=== PATIENT | female | born 1955 | race Caucasian/White ===

== ENCOUNTER 2016-05-24 09:40 | Emergency (ER) | payer BC ==
--- NOTE | 2016-05-24 10:22 | EDDOCDS ---
Physician Documentation [facility] Name: Trudy Lindsay Age: 60 yrs Sex: Female : 1955 Arrival Date: 05/24/2016 Time: 09:40 Bed TR7 Private MD: Efrem Thapa A. Disposition: 05/24/16 10:14 Discharged to Home/Self Care. Impression: Acute upper respiratory infections of multiple and unspecified sites, Acute bronchitis. - Condition is Stable. - Discharge Instructions: Acute Bronchitis, Upper Respiratory Infection, Adult. - Prescriptions for Clindamycin HCl 300 mg Oral Capsule - take 1 capsule by ORAL route every 6 hours; 40 capsule. Albuterol Sulfate 2.5 mg /3 mL (0.083 %) Inhalation Solution for Nebulization - inhale 1 unit by NEBULIZATION route 4 times per day As needed; 1 box. Fluticasone 50 mcg/actuation Nasal [place], Suspension - inhale 2 spray by INTRANASAL route once daily; 1 bottle. - Medication Reconciliation, Local Pharmacy Hours, Work Release Form - 3 day form. - Follow up: Emergency Department; When: As needed. Follow up: Efrem Thapa; When: Call to arrange an appointment; Reason: Wound/Symptom Recheck, Recheck today's complaints, Worsening of conditions, Continuance of care. - Problem is an ongoing problem. - Symptoms are unchanged. Historical: - Allergies: PENICILLINS; Erythromycin; Ceclor; duricef; Bactrim; Prednisone; Codeine Sulfate; CEPHALOSPORINS; - Home Meds: 1. Albuterol Nebulizer as needed 2. Claritin 10 mg Oral tab 1 tab once daily - PMHx: bronchial atelectasis; Depression; lichen sclerosis; - PSHx: Tubal ligation; reversa tubal ligation; - Social history: Smoking status: Patient states was never smoker of tobacco. No barriers to communication noted, The patient speaks fluent Frisian, Speaks appropriately for age. - Family history: Not pertinent. - : The pt / caregiver states he / she is not on anticoagulants. Home medication list is obtained from the patient. - Exposure Risk Screening:: None identified. Vital Signs: 05/24 09:42 BP 173 / 92; Pulse 120; Resp 18; Temp 96.9(T); Pulse Ox 97% on R/A; Weight 90.72 kg / dem1 200 lbs (R); Height 5 ft. 6 in. (167.64 cm) (R); Pain 0/10; 09:42 Body Mass Index 32.28 (90.72 kg, 167.64 cm) dem1 Signatures: Jennifer Antonio,RN RN kr3 Laure Cruz RN RN dsf Michael Lopez, PAIleanaC PA-C cc10 MTDD
--- NOTE | 2016-05-24 10:22 | EDDOCDS ---
Nurse's Notes [facility] Name: Trudy Lindsay Age: 60 yrs Sex: Female : 1955 Arrival Date: 05/24/2016 Time: 09:40 Bed TR7 Private MD: Efrem Thapa A. Diagnosis: Acute upper respiratory infections of multiple and unspecified sites;Acute bronchitis Presentation: 05/24 09:50 Presenting complaint: Patient states: has had upper respiratory tract infection for 1 kr3 week. Adult Sepsis Screening: The patient does not have new or worsening altered mentation. Patient's respiratory rate is less than 22. Systolic blood pressure is greater than 100. Patient has a qSOFA score of 0- Negative Sepsis Screen. Suicide/Homicide risk assessment- the patient denies having any suicidal and/or homicidal ideations and does not present with any other emotional, behavioral or mental health complaints. Status: Patient is not a service center technician or dependent. Transition of care: patient was not received from another setting of care. 09:50 Acuity: QASIM Level 5 kr3 09:50 Method Of Arrival: Walkin/Carried/Asstd kr3 Triage Assessment: 09:56 General: Appears in no apparent distress, comfortable, Behavior is cooperative. Pain: kr3 Denies pain. HIV screening NA for this visit Offered previously. EENT: Reports intermittent nasal congestion. Respiratory: Respiratory effort is even, unlabored, Reports persistent cough with exertion. Historical: - Allergies: PENICILLINS; Erythromycin; Ceclor; duricef; Bactrim; Prednisone; Codeine Sulfate; CEPHALOSPORINS; - Home Meds: 1. Albuterol Nebulizer as needed 2. Claritin 10 mg Oral tab 1 tab once daily - PMHx: bronchial atelectasis; Depression; lichen sclerosis; - PSHx: Tubal ligation; reversa tubal ligation; - Social history: Smoking status: Patient states was never smoker of tobacco. No barriers to communication noted, The patient speaks fluent French, Speaks appropriately for age. - Family history: Not pertinent. - : The pt / caregiver states he / she is not on anticoagulants. Home medication list is obtained from the patient. - Exposure Risk Screening:: None identified. Screenin:21 Screening information is obtained from the patient. Fall risk: No risks identified. dsf Assistance ADL's: requires no assistance with activities of daily living. Abuse/DV Screen: The patient / caregiver reports he/she is: not in a situation that causes fear, pain or injury. Nutritional screening: No deficits noted. Advance Directives: Currently, there is no health care proxy. home support is adequate. Assessment: 10:20 General: Appears in no apparent distress, comfortable, Behavior is appropriate for age, dsf cooperative. Awake, alert, oriented. Skin warm and dry. Moves all extremities. Bilateral breath sounds clear. Respirations unlabored. The patient / caregiver is instructed regarding the plan of care and ED course. Vital Signs: 09:42 BP 173 / 92; Pulse 120; Resp 18; Temp 96.9(T); Pulse Ox 97% on R/A; Weight 90.72 kg dem1 (R); Height 5 ft. 6 in. (167.64 cm) (R); Pain 0/10; 09:42 Body Mass Index 32.28 (90.72 kg, 167.64 cm) [facility] Vitals: 09:42 Log In Time: May 24, 2016 at 09:35. [facility] ED Course: 09:42 Patient visited by Topher Ott. dem1 09:42 Efrem Thapa is Private Physician. dem1 09:42 Patient moved to Waiting dem1 09:43 Patient moved to Pre RCE dem1 09:50 Patient moved to Triage 3 kr3 09:50 Triage Initiated kr3 10:02 Michael Lopez [facility]-C [facility] cc10 10:02 Teena Sun MD is Attending Physician. cc10 10:06 Patient visited by Michael Lopez PA-C. cc10 10:06 Patient visited by Michael Lopez PA-C. cc10 10:14 Efrem Thapa is Referral Physician. cc10 10:20 Patient has correct armband on for positive identification. dsf 10:20 Patient moved to TR7 dsf 10:21 No IV's were initiated during this patient's visit. No procedures done that require dsf assistance. Order Results: There are currently no results for this order. Outcome: 10:14 Discharge ordered by Provider. cc10 10:20 The following High Risk Discharge criteria are identified: None. Discharged to home dsf ambulatory. Condition: stable. Discharge instructions given to patient, Instructed on discharge instructions, follow up and referral plans. medication usage, Demonstrated understanding of instructions, medications, Pt was receptive of discharge instructions/ teaching. Prescriptions given X 3, Work note provided to patient. No special radiology studies were completed. 10:21 Discharge Assessment: Patient awake, alert and oriented x 3. No cognitive and/or dsf functional deficits noted. Patient verbalized understanding of disposition instructions. patient administered narcotics - no. The following High Risk Discharge criteria are identified: None. Discharged to home ambulatory. Property sent home with patient. 10:22 Patient left the ED. dsf Signatures: Jennifer Antonio,RN RN kr3 Laure CruzRN RN dsf Topher Ott Colin, PA-C PA-C cc10 MTDD
--- NOTE | 2016-05-26 11:23 | EDDOCDS ---
Nurse's Notes [facility] Name: Trudy Lindsay Age: 60 yrs Sex: Female : 1955 Arrival Date: 05/24/2016 Time: 09:40 Bed TR7 Private MD: Efrem Thapa A. Diagnosis: Acute upper respiratory infections of multiple and unspecified sites;Acute bronchitis Presentation: 05/24 09:50 Presenting complaint: Patient states: has had upper respiratory tract infection for 1 kr3 week. Adult Sepsis Screening: The patient does not have new or worsening altered mentation. Patient's respiratory rate is less than 22. Systolic blood pressure is greater than 100. Patient has a qSOFA score of 0- Negative Sepsis Screen. Suicide/Homicide risk assessment- the patient denies having any suicidal and/or homicidal ideations and does not present with any other emotional, behavioral or mental health complaints. Status: Patient is not a professional services consultant or dependent. Transition of care: patient was not received from another setting of care. 09:50 Acuity: QASIM Level 5 kr3 09:50 Method Of Arrival: Walkin/Carried/Asstd kr3 Triage Assessment: 09:56 General: Appears in no apparent distress, comfortable, Behavior is cooperative. Pain: kr3 Denies pain. HIV screening NA for this visit Offered previously. EENT: Reports intermittent nasal congestion. Respiratory: Respiratory effort is even, unlabored, Reports persistent cough with exertion. Historical: - Allergies: PENICILLINS; Erythromycin; Ceclor; duricef; Bactrim; Prednisone; Codeine Sulfate; CEPHALOSPORINS; - Home Meds: 1. Albuterol Nebulizer as needed 2. Claritin 10 mg Oral tab 1 tab once daily - PMHx: bronchial atelectasis; Depression; lichen sclerosis; - PSHx: Tubal ligation; reversa tubal ligation; - Social history: Smoking status: Patient states was never smoker of tobacco. No barriers to communication noted, The patient speaks fluent Italian, Speaks appropriately for age. - Family history: Not pertinent. - : The pt / caregiver states he / she is not on anticoagulants. Home medication list is obtained from the patient. - Exposure Risk Screening:: None identified. Screenin:21 Screening information is obtained from the patient. Fall risk: No risks identified. dsf Assistance ADL's: requires no assistance with activities of daily living. Abuse/DV Screen: The patient / caregiver reports he/she is: not in a situation that causes fear, pain or injury. Nutritional screening: No deficits noted. Advance Directives: Currently, there is no health care proxy. home support is adequate. Assessment: 10:20 General: Appears in no apparent distress, comfortable, Behavior is appropriate for age, dsf cooperative. Awake, alert, oriented. Skin warm and dry. Moves all extremities. Bilateral breath sounds clear. Respirations unlabored. The patient / caregiver is instructed regarding the plan of care and ED course. 10:20 General: provider Jessica aware of VS pt took a nebulizer treatment before coming to ER dsf . Vital Signs: 09:42 BP 173 / 92; Pulse 120; Resp 18; Temp 96.9(T); Pulse Ox 97% on R/A; Weight 90.72 kg dem1 (R); Height 5 ft. 6 in. (167.64 cm) (R); Pain 0/10; 09:42 Body Mass Index 32.28 (90.72 kg, 167.64 cm) [facility] [place] Vitals: 09:42 Log In Time: May 24, 2016 at 09:35. [facility] ED Course: 09:42 Patient visited by Topher Ott. dem1 09:42 Efrem Thapa is Private Physician. dem1 09:42 Patient moved to Waiting dem1 09:43 Patient moved to Pre RCE dem1 09:50 Patient moved to Triage 3 kr3 09:50 Triage Initiated kr3 10:02 Michael Lopez PA-C [facility]. cc10 10:02 Teena Sun MD is Attending Physician. cc10 10:06 Patient visited by Michael Lopez PA-C. cc10 10:06 Patient visited by Michael Lopez PA-C. cc10 10:14 Efrem Thapa is Referral Physician. cc10 10:20 Patient has correct armband on for positive identification. dsf 10:20 Patient moved to TR7 dsf 10:21 No IV's were initiated during this patient's visit. No procedures done that require dsf assistance. 05/25 07:20 T-Sheet-- Draft Copy was scanned into [employer] and attached to record. gb Order Results: There are currently no results for this order. Outcome: 05/24 10:14 Discharge ordered by Provider. cc10 10:20 The following High Risk Discharge criteria are identified: None. Discharged to home dsf ambulatory. Condition: stable. Discharge instructions given to patient, Instructed on discharge instructions, follow up and referral plans. medication usage, Demonstrated understanding of instructions, medications, Pt was receptive of discharge instructions/ teaching. Prescriptions given X 3, Work note provided to patient. No special radiology studies were completed. 10:21 Discharge Assessment: Patient awake, alert and oriented x 3. No cognitive and/or dsf functional deficits noted. Patient verbalized understanding of disposition instructions. patient administered narcotics - no. The following High Risk Discharge criteria are identified: None. Discharged to home ambulatory. Property sent home with patient. 10:22 Patient left the ED. dsf Signatures: Katiuska Velásquez, Reg Jennifer Floyd,RN RN kr3 Laure CruzRN RN dsf Topher Ott Colin, PA-Priya PA-C cc10 Chart Complete [facility]ITALDerek
--- NOTE | 2016-05-26 11:23 | EDDOCDS ---
Physician Documentation [facility] Name: Trudy Lindsay Age: 60 yrs Sex: Female : 1955 Arrival Date: 05/24/2016 Time: 09:40 Bed TR7 Private MD: Efrem Thapa A. Disposition: 05/24/16 10:14 Discharged to Home/Self Care. Impression: Acute upper respiratory infections of multiple and unspecified sites, Acute bronchitis. - Condition is Stable. - Discharge Instructions: Acute Bronchitis, Upper Respiratory Infection, Adult. - Prescriptions for Clindamycin HCl 300 mg Oral Capsule - take 1 capsule by ORAL route every 6 hours; 40 capsule. Albuterol Sulfate 2.5 mg /3 mL (0.083 %) Inhalation Solution for Nebulization - inhale 1 unit by NEBULIZATION route 4 times per day As needed; 1 box. Fluticasone 50 mcg/actuation Nasal [place], Suspension - inhale 2 spray by INTRANASAL route once daily; 1 bottle. - Medication Reconciliation, Local Pharmacy Hours, Work Release Form - 3 day form. - Follow up: Emergency Department; When: As needed. Follow up: Efrem Thapa; When: Call to arrange an appointment; Reason: Wound/Symptom Recheck, Recheck today's complaints, Worsening of conditions, Continuance of care. - Problem is an ongoing problem. - Symptoms are unchanged. Historical: - Allergies: PENICILLINS; Erythromycin; Ceclor; duricef; Bactrim; Prednisone; Codeine Sulfate; CEPHALOSPORINS; - Home Meds: 1. Albuterol Nebulizer as needed 2. Claritin 10 mg Oral tab 1 tab once daily - PMHx: bronchial atelectasis; Depression; lichen sclerosis; - PSHx: Tubal ligation; reversa tubal ligation; - Social history: Smoking status: Patient states was never smoker of tobacco. No barriers to communication noted, The patient speaks fluent Divehi, Speaks appropriately for age. - Family history: Not pertinent. - : The pt / caregiver states he / she is not on anticoagulants. Home medication list is obtained from the patient. - Exposure Risk Screening:: None identified. Vital Signs: 05/24 09:42 BP 173 / 92; Pulse 120; Resp 18; Temp 96.9(T); Pulse Ox 97% on R/A; Weight 90.72 kg / dem1 200 lbs (R); Height 5 ft. 6 in. (167.64 cm) (R); Pain 0/10; 09:42 Body Mass Index 32.28 (90.72 kg, 167.64 cm) dem1 MDM: 05/25 07:20 T-Sheet-- Draft Copy was scanned into [employer] and attached to record. gb Signatures: Katiuska Velásquez, Reg Reg Jennifer Redd RN RN kr3 Laure Cruz RN RN dsf Michael Lopez, PA-C PA-C cc10 The chart was reviewed and I authenticate all verbal orders and agree with the evaluation and treatment provided.Attachments: 07:20 T-Sheet-- Draft Copy gb Chart Complete MTDD
--- NOTE | 2016-05-26 11:23 | EDDOCDS ---
Physician Documentation [facility] Name: Trudy Lindsay Age: 60 yrs Sex: Female : 1955 Arrival Date: 05/24/2016 Time: 09:40 Bed TR7 Private MD: Efrem Thapa A. Disposition: 05/24/16 10:14 Discharged to Home/Self Care. Impression: Acute upper respiratory infections of multiple and unspecified sites, Acute bronchitis. - Condition is Stable. - Discharge Instructions: Acute Bronchitis, Upper Respiratory Infection, Adult. - Prescriptions for Clindamycin HCl 300 mg Oral Capsule - take 1 capsule by ORAL route every 6 hours; 40 capsule. Albuterol Sulfate 2.5 mg /3 mL (0.083 %) Inhalation Solution for Nebulization - inhale 1 unit by NEBULIZATION route 4 times per day As needed; 1 box. Fluticasone 50 mcg/actuation Nasal [place], Suspension - inhale 2 spray by INTRANASAL route once daily; 1 bottle. - Medication Reconciliation, Local Pharmacy Hours, Work Release Form - 3 day form. - Follow up: Emergency Department; When: As needed. Follow up: Efrem Thapa; When: Call to arrange an appointment; Reason: Wound/Symptom Recheck, Recheck today's complaints, Worsening of conditions, Continuance of care. - Problem is an ongoing problem. - Symptoms are unchanged. Historical: - Allergies: PENICILLINS; Erythromycin; Ceclor; duricef; Bactrim; Prednisone; Codeine Sulfate; CEPHALOSPORINS; - Home Meds: 1. Albuterol Nebulizer as needed 2. Claritin 10 mg Oral tab 1 tab once daily - PMHx: bronchial atelectasis; Depression; lichen sclerosis; - PSHx: Tubal ligation; reversa tubal ligation; - Social history: Smoking status: Patient states was never smoker of tobacco. No barriers to communication noted, The patient speaks fluent Ukrainian, Speaks appropriately for age. - Family history: Not pertinent. - : The pt / caregiver states he / she is not on anticoagulants. Home medication list is obtained from the patient. - Exposure Risk Screening:: None identified. Vital Signs: 05/24 09:42 BP 173 / 92; Pulse 120; Resp 18; Temp 96.9(T); Pulse Ox 97% on R/A; Weight 90.72 kg / dem1 200 lbs (R); Height 5 ft. 6 in. (167.64 cm) (R); Pain 0/10; 09:42 Body Mass Index 32.28 (90.72 kg, 167.64 cm) dem1 MDM: 05/25 07:20 T-Sheet-- Draft Copy was scanned into [employer] and attached to record. gb Signatures: Katiuska Velásquez, Reg Reg Jennifer Redd RN RN kr3 Laure Cruz RN RN dsf Michael Lopez, PA-C PA-C cc10 The chart was reviewed and I authenticate all verbal orders and agree with the evaluation and treatment provided.Attachments: 07:20 T-Sheet-- Draft Copy gb Chart Complete MTDD
== END 2016-05-24 10:22 | disposition home or self-care (01) ==
LOC: M ED 09:40
DX: J20.9 Acute bronchitis, unspecified (principal); J06.9 Acute upper respiratory infection, unspecified; J98.11 Atelectasis; F32.9 Major depressive disorder, single episode, unspecified; L90.0 Lichen sclerosus et atrophicus; Z79.899 Other long term (current) drug therapy; Z88.0 Allergy status to penicillin; Z88.1 Allergy status to other antibiotic agents; Z88.2 Allergy status to sulfonamides; Z88.5 Allergy status to narcotic agent; Z88.8 Allergy status to other drugs, medicaments and biological substances

== ENCOUNTER → 2016-08-10 | Outpatient (REF) | payer BC ==
[2016-08-10 11:46] LABS: ALBUMIN 3.6 GM/DL (3.2-5.2); ALKALINE PHOSPHATASE 68 U/L (45-117); ALT/SGPT 27 U/L (12-78); ANION GAP 5 MEQ/L (8-16); AST/SGOT 25 U/L (15-37); BILIRUBIN,TOTAL 0.4 MG/DL (0.2-1.0); BLOOD UREA NITROGEN 20 MG/DL (7-18); CALCIUM LEVEL 9.7 MG/DL (8.8-10.2); CARBON DIOXIDE LEVEL 31 MEQ/L (21-32); CHLORIDE LEVEL 104 MEQ/L (98-107); CHOLESTEROL LEVEL 226 MG/DL (<200); CREATININE FOR GFR 0.81 MG/DL (0.55-1.02); GLOMERULAR FILTRATION RATE > 60.0 (>45); GLUCOSE, FASTING 167 MG/DL (80-110); POTASSIUM SERUM 4.8 MEQ/L (3.5-5.1); SODIUM LEVEL 140 MEQ/L (136-145); TOTAL PROTEIN 7.2 GM/DL (6.4-8.2); TRIGLYCERIDES LEVEL 201 MG/DL (<150)
== END ==
LOC: M SFHCCLAY 07:02
PROVIDERS: ATTEND Nurse Practitioner
DX: Z00.00 Encounter for general adult medical examination without abnormal findings (principal)

== ENCOUNTER → 2016-08-17 | Outpatient (CLI) | payer BC ==
[~2016-08-17] MED LIST: PLAV75TA38 PO
--- NOTE | 2016-08-17 17:34 | REP ---
MR BRAIN WITHOUT CONTRAST: HISTORY: Right hand weakness. Small areas of increased signal intensity on diffusion and T2 weighted images are present in the left frontal and parietal lobes. These are isointense in signal intensity on ADC images and are consistent with subacute infarctions. Areas of increased signal intensity on T2 weighted images are present in the preventricular and subcortical white matter. This represents small vessel ischemic disease. There is no intraparenchymal hemorrhage. Mass or midline shift. The ventricular system and cortical sulci are dilated consistent with minimal volume loss. There is no extracerebral collection. Increased signal intensity is present in the subarachnoid space overlying the posterior left parietal lobe. This represents slow blood flow. IMPRESSION: 1. 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 2. Minimal small vessel ischemic disease. 3. Minimal volume loss. Signed by Vidal Leblanc MD 08/20/2016 09:17 A
--- NOTE | 2016-08-17 17:46 | REP ---
MR CERVICAL SPINE WITHOUT CONTRAST: HISTORY: Right hand weakness. There are 2 mm of anterior subluxation of C2 on 3. Facet hypertrophy is present on the left. This produces minimal narrowing of the left C2 neural foramen. The right C2 neural foramina is patent. A disc bulge and small central disc protrusion with associated osteophyte formation are present at the C3-4 level. There is mild effacement of the thecal sac without spinal cord compression. Uncinate process and facet hypertrophy are present on the left. These findings produce mild narrowing of the left C3 neural foramen. The right C3 neural foramen is patent. A disc bulge with associated osteophyte formation is present at the A disc bulge is present at the C3-4 level. The previously noted disc protrusion is note seen. The C3 neural foramina are patent. A disc bulge with associated osteophyte formation is present at the C4-5 level. There is moderate effacement of the thecal sac without spinal cord compression. Bilateral uncinate process hypertrophy is present. These findings produce mild narrowing of the C4 neural foramina. A disc bulge with associated osteophyte formation is present at the C5-6 level. There is moderate effacement of the thecal sac without spinal cord compression. Bilateral uncinate process hypertrophy is present. This produces minimal narrowing of the C5 neural foramina. A disc bulge with associated osteophyte formation is present at the C6-7 level. There is mild effacement of the thecal sac without spinal cord compression. Bilateral uncinate process hypertrophy is present. This produces mild and minimal narrowing of the right and left C6 neural foramina respectively. There is no other disc bulge or herniation. The remaining neural foramina are patent. The spinal cord is normal in signal intensity. The C3-4 through C6-7 intervertebral discs are decreased in height consistent with disc degeneration. Normal signal intensity is present in the cervical vertebral bodies. IMPRESSION: There is cervical spondylosis at the C2-3 through C6-7 levels without spinal cord compression. Signed by Vidal Leblanc MD 08/20/2016 09:17 A
== END ==
LOC: M RAD 14:42
PROVIDERS: ATTEND Nurse Practitioner
DX: R29.898 Other symptoms and signs involving the musculoskeletal system (principal); E11.9 Type 2 diabetes mellitus without complications

== ENCOUNTER 2016-08-20 22:52 | Emergency (ER) | payer BC ==
[~2016-08-20] VITALS: Ht 167.6 cm; Wt 90.7 kg
[2016-08-21] MEDS ORDERED: NS 500 ML IV ONE
[2016-08-21 00:10] LABS: BASO % 0.5 % (0.0-1.0); EOS # 0.2 K/mm3 (0.0-0.50); EOS % 2.3 % (0.0-3.0); LARGE UNSTAINED CELL # 0.2 K/mm3 (0.0-0.4); LYMPH # 3.1 K/mm3 (1.5-4.5); MEAN CORPUSCULAR HEMOGLOBIN 29.1 pg (27.0-33.0); MEAN CORPUSCULAR HGB CONC 33.3 g/dl (32.0-36.5); MEAN CORPUSCULAR VOLUME 87.6 fl (80.0-96.0); MONO # 0.4 K/mm3 (0.0-0.8); NEUTROPHILS # 3.8 K/mm3 (1.8-7.7); NEUTROPHILS % 51.2 % (36.0-66.0); PLATELET COUNT, AUTOMATED 201 k/mm3 (150-450); RED CELL DISTRIBUTION WIDTH 13.2 % (11.5-14.5); WHITE BLOOD COUNT 7.5 K/mm3 (4.0-10.0)
[2016-08-21 00:11] LABS: INR 1.01
--- NOTE | 2016-08-21 00:20 | REPUSA ---
CT of the head Clinical history: cerebrovascular accident. Technique: Multiple axial CT images were obtained through the head without administration of contrast . Findings: The ventricles and sulci are symmetric bilaterally. There is no evidence of acute hemorrhag e or infarct. There is no midline shift, mass effect, or extra-axial fluid collection. The osseous st ructures are unremarkable. The visualized paranasal sinuses and mastoid air cells are clear. Impression: Negative study.
[2016-08-21 00:22] LABS: ANION GAP 9 MEQ/L (8-16); BLOOD UREA NITROGEN 17 MG/DL (7-18); CALCIUM LEVEL 9.5 MG/DL (8.8-10.2); CARBON DIOXIDE LEVEL 26 MEQ/L (21-32); CHLORIDE LEVEL 104 MEQ/L (98-107); CREATININE FOR GFR 0.83 MG/DL (0.55-1.02); GLOMERULAR FILTRATION RATE > 60.0 (>45); GLUCOSE, FASTING 154 MG/DL (80-110); SODIUM LEVEL 139 MEQ/L (136-145)
[2016-08-21] MEDS ORDERED: ISOVUE-370 76% 100ML VIAL (Q9967) As Ordered ONE ×2 (00:57→01:08)
[2016-08-21] MEDS ORDERED: ASPIRIN 325 MG TAB PO ONE (01:00)
--- NOTE | 2016-08-21 01:30 | REPUSA ---
CT angiogram of the chest Clinical statement: Chest pain and shortness of breath. Technique: Multiple axial CT images were obtained from the thoracic inlet through the upper abdomen a fter a bolus administration of nonionic intravenous contrast. Coronal and sagittal reconstructions we re also obtained. Comparison: 05/25/2013. Findings: The pulmonary arteries are well-opacified with contrast, with no intraluminal filling defec ts to suggest embolism. The thoracic aorta is unremarkable. Thyroid gland is within normal limits. Th ere is no thoracic lymphadenopathy. There are no pericardial or pleural effusions. There are no acute infiltrates. Mild chronic interstitial changes are seen in the lower lungs bilaterally. Limited imag ing of the upper abdomen is unremarkable. There are no suspicious osseous lesions. Impression: 1. No evidence of pulmonary embolism. 2. No acute intrapulmonary disease. Moderate COPD, grossly stable.
[2016-08-21] MEDS ORDERED: NS 1,000 ML IV ONE (04:15)
[2016-08-21 06:14] VITALS: BP 128/64
[2016-08-21] MEDS ORDERED: PLAV75TA38 PO (06:36)
--- NOTE | 2016-08-22 21:24 | ECGEPIP ---
Stationary ECG Study [facility] - ED Test Date: 2016-08-20 Pat Name: MELISSA FANG Department: Room: - Gender: F Control Systems Specialist: bernice : 1955 Requested By: JUAN YOUNG Order Number: [id number] Reading MD: Amanda Guerrero Measurements Intervals [place] Rate: 116 P: 22 [place]: 147 QRS: -36 QRSD: 85 T: 8 QT: 324 QTc: 450 Interpretive Statements SINUS TACHYCARDIA POSSIBLE ANTERIOR MYOCARDIAL INFARCTION, PROBABLY OLD INFERIOR MYOCARDIAL INFARCTION, PROBABLY OLD DECREASED RATE 05/25/13 Electronically Signed On 08-22-2016 21:24:43 EDT by Amanda Guerrero
== END 2016-08-21 06:45 | disposition home or self-care (01) ==
LOC: EDBD 22:52 → M ED 23:00
DX: E86.9 Volume depletion, unspecified (principal); I95.1 Orthostatic hypotension
CPT/HCPCS: 36415; 70450; 71275; 80048; 82550; 82553; 85025; 85610; 85730; 93005; 93041; 96360; 96361; 99285; Q9967

== ENCOUNTER → 2016-09-06 | Outpatient (REF) | payer BC ==
[2016-09-11 00:06] LABS: PROTEIN C ANTIGEN 91 % (60-150); PROTEIN S ANTIGEN FREE 102 % (57-157); PROTEIN S ANTIGEN TOTAL 169 % (60-150)
== END ==
LOC: M LABNEURO 09:03
PROVIDERS: ATTEND Psychiatry & Neurology Neurology
DX: Z86.73 Personal history of transient ischemic attack (TIA), and cerebral infarction without residual deficits (principal)

== ENCOUNTER 2016-09-12 06:00 | Outpatient (RCR) | payer BC | END 2016-09-16 | LOC: M OT 06:00 | PROVIDERS: ATTEND Nurse Practitioner | DX: Z51.89 Encounter for other specified aftercare (principal); R29.898 Other symptoms and signs involving the musculoskeletal system ==

== ENCOUNTER 2016-10-16 07:32 | Outpatient (RCR) | payer BC | END 2016-10-17 | LOC: M OT 07:32 | PROVIDERS: ATTEND Nurse Practitioner | DX: Z51.89 Encounter for other specified aftercare (principal); R29.898 Other symptoms and signs involving the musculoskeletal system ==

== ENCOUNTER 2016-11-01 07:43 | Outpatient (RCR) | payer BC ==
[~2016-11-01 07:43] MED LIST changes: +PLAV1TAB2 PO; -PLAV75TA38 PO
== END 2016-11-16 ==
LOC: M OT 07:43
PROVIDERS: ATTEND Nurse Practitioner
DX: R29.898 Other symptoms and signs involving the musculoskeletal system (principal); Z51.89 Encounter for other specified aftercare

== ENCOUNTER → 2016-11-12 | Outpatient (REF) | payer BC ==
[~2016-11-12] MED LIST changes: -PLAV1TAB2 PO; +PLAV75TA38 PO
[2016-11-12 12:21] LABS: ALBUMIN 3.6 GM/DL (3.2-5.2); ALBUMIN/GLOBULIN RATIO 0.97 (1.00-1.93); ALKALINE PHOSPHATASE 54 U/L (45-117); ALT/SGPT 25 U/L (12-78); ANION GAP 6 MEQ/L (8-16); AST/SGOT 21 U/L (15-37); BILIRUBIN,TOTAL 0.6 MG/DL (0.2-1.0); BLOOD UREA NITROGEN 11 MG/DL (7-18); CALCIUM LEVEL 9.3 MG/DL (8.8-10.2); CARBON DIOXIDE LEVEL 30 MEQ/L (21-32); CHLORIDE LEVEL 104 MEQ/L (98-107); CHOLESTEROL LEVEL 139 MG/DL (<200); CREATININE FOR GFR 0.73 MG/DL (0.55-1.02); GLOMERULAR FILTRATION RATE > 60.0 (>45); GLUCOSE, FASTING 143 MG/DL (80-110); POTASSIUM SERUM 4.8 MEQ/L (3.5-5.1); SODIUM LEVEL 140 MEQ/L (136-145); TOTAL PROTEIN 7.3 GM/DL (6.4-8.2); TRIGLYCERIDES LEVEL 210 MG/DL (<150)
== END ==
LOC: M SFHCCLAY 07:03
PROVIDERS: ATTEND Nurse Practitioner
DX: E11.9 Type 2 diabetes mellitus without complications (principal)

== ENCOUNTER → 2016-12-17 | Outpatient (REF) | payer BC ==
[~2016-12-17] MED LIST changes: +PLAV1TAB2 PO; -PLAV75TA38 PO
[2016-12-17 17:14] LABS: BASO % 0.5 % (0.0-1.0); EOS # 0.2 K/mm3 (0.0-0.50); EOS % 2.4 % (0.0-3.0); LARGE UNSTAINED CELL # 0.1 K/mm3 (0.0-0.4); LARGE UNSTAINED CELL % 1.7 % (0.0-4.0); LYMPH # 2.7 K/mm3 (1.5-4.5); LYMPH % 36.8 % (24.0-44.0); MEAN CORPUSCULAR HEMOGLOBIN 30.6 pg (27.0-33.0); MEAN CORPUSCULAR HGB CONC 33.4 g/dl (32.0-36.5); MEAN CORPUSCULAR VOLUME 91.7 fl (80.0-96.0); MONO # 0.4 K/mm3 (0.0-0.8); MONO % 5.4 % (0.0-5.0); NEUTROPHILS # 3.8 K/mm3 (1.8-7.7); NEUTROPHILS % 53.1 % (36.0-66.0); PLATELET COUNT, AUTOMATED 254 k/mm3 (150-450); RED CELL DISTRIBUTION WIDTH 12.9 % (11.5-14.5); WHITE BLOOD COUNT 7.2 K/mm3 (4.0-10.0)
[2016-12-17 17:56] LABS: ANION GAP 7 MEQ/L (8-16); BLOOD UREA NITROGEN 16 MG/DL (7-18); CALCIUM LEVEL 9.2 MG/DL (8.8-10.2); CARBON DIOXIDE LEVEL 30 MEQ/L (21-32); CHLORIDE LEVEL 105 MEQ/L (98-107); CREATININE FOR GFR 0.82 MG/DL (0.55-1.02); GLOMERULAR FILTRATION RATE > 60.0 (>45); GLUCOSE, FASTING 143 MG/DL (80-110); MAGNESIUM LEVEL 2.1 MG/DL (1.8-2.4); POTASSIUM SERUM 4.5 MEQ/L (3.5-5.1); SODIUM LEVEL 142 MEQ/L (136-145)
== END ==
LOC: M SFHCCLAY 10:07
PROVIDERS: ATTEND Family Medicine
DX: R00.0 Tachycardia, unspecified (principal)

== ENCOUNTER → 2017-09-06 | Outpatient (REF) | payer BC ==
[2017-09-06 12:02] LABS: ESTIMATED AVERAGE GLUCOSE 154 MG/DL (60-110)
[2017-09-06 12:12] LABS: ALBUMIN 3.6 GM/DL (3.2-5.2); ALBUMIN/GLOBULIN RATIO 1.03 (1.00-1.93); ALKALINE PHOSPHATASE 49 U/L (45-117); ALT/SGPT 26 U/L (12-78); ANION GAP 4 MEQ/L (8-16); AST/SGOT 24 U/L (7-37); BILIRUBIN,TOTAL 0.4 MG/DL (0.2-1.0); BLOOD UREA NITROGEN 24 MG/DL (7-18); CARBON DIOXIDE LEVEL 31 MEQ/L (21-32); CHLORIDE LEVEL 107 MEQ/L (98-107); CHOLESTEROL LEVEL 163 MG/DL (<200); CHOLESTEROL RISK RATIO 3.543 (<5); CREATININE FOR GFR 0.76 MG/DL (0.55-1.30); GLOMERULAR FILTRATION RATE > 60.0 (>45); GLUCOSE, FASTING 153 MG/DL (70-100); HDL CHOLESTEROL 46 MG/DL (>40); LDL CHOLESTEROL 63.4 MG/DL (<100); NON-HDL-C 117 MG/DL; POTASSIUM SERUM 4.6 MEQ/L (3.5-5.1); SODIUM LEVEL 142 MEQ/L (136-145); TOTAL PROTEIN 7.1 GM/DL (6.4-8.2); TRIGLYCERIDES LEVEL 268 MG/DL (<150)
== END ==
LOC: M SFHCCLAY 07:15
DX: E11.9 Type 2 diabetes mellitus without complications (principal)
CPT/HCPCS: 80053

== ENCOUNTER → 2018-02-10 | Outpatient (REF) | payer BC ==
[2018-02-10 12:02] LABS: ANION GAP 4 MEQ/L (8-16); BLOOD UREA NITROGEN 15 MG/DL (7-18); CALCIUM LEVEL 8.9 MG/DL (8.8-10.2); CARBON DIOXIDE LEVEL 32 MEQ/L (21-32); CHLORIDE LEVEL 106 MEQ/L (98-107); CREATININE FOR GFR 0.75 MG/DL (0.55-1.30); GLOMERULAR FILTRATION RATE > 60.0 (>45); GLUCOSE, FASTING 172 MG/DL (70-100); POTASSIUM SERUM 4.4 MEQ/L (3.5-5.1); SODIUM LEVEL 142 MEQ/L (136-145)
[2018-02-10 12:37] LABS: ESTIMATED AVERAGE GLUCOSE 157 MG/DL (60-110); HEMOGLOBIN A1c 7.1 %
[2018-02-10 12:51] LABS: TOTAL 25(OH) VITAMIN D 16.2 NG/ML (30.0-100.0)
== END ==
LOC: M SFHCCLAY 06:57
DX: E11.9 Type 2 diabetes mellitus without complications (principal); E55.9 Vitamin D deficiency, unspecified
CPT/HCPCS: 83036

== ENCOUNTER → 2018-10-22 | Outpatient (REF) | payer MEDICARE, BC ==
[2018-10-22 11:53] LABS: ALBUMIN 3.4 GM/DL (3.2-5.2); ALT/SGPT 26 U/L (12-78); BILIRUBIN,TOTAL 0.4 MG/DL (0.2-1.0); BLOOD UREA NITROGEN 14 MG/DL (7-18); CALCIUM LEVEL 9.4 MG/DL (8.8-10.2); CARBON DIOXIDE LEVEL 32 MEQ/L (21-32); CHLORIDE LEVEL 105 MEQ/L (98-107); CHOLESTEROL LEVEL 153 MG/DL (<200); CHOLESTEROL RISK RATIO 3.731 (<5); GLOMERULAR FILTRATION RATE > 60.0 (>45); GLUCOSE, FASTING 172 MG/DL (70-100); HDL CHOLESTEROL 41 MG/DL (>40); LDL CHOLESTEROL 60 MG/DL (<100); NON-HDL-C 112 MG/DL; POTASSIUM SERUM 5.1 MEQ/L (3.5-5.1); SODIUM LEVEL 142 MEQ/L (136-145); TOTAL PROTEIN 7.3 GM/DL (6.4-8.2); TRIGLYCERIDES LEVEL 260 MG/DL (<150)
[2018-10-22 11:57] LABS: TOTAL 25(OH) VITAMIN D 70.8 NG/ML (30.0-100.0)
[2018-10-22 12:21] LABS: HEMOGLOBIN A1c 7.9 %
== END ==
LOC: M SFHCCLAY 07:02
PROVIDERS: ATTEND Family Medicine
DX: E11.9 Type 2 diabetes mellitus without complications (principal); E78.00 Pure hypercholesterolemia, unspecified; E55.9 Vitamin D deficiency, unspecified

== ENCOUNTER → 2018-10-30 | Outpatient (CLI) | payer BC, MEDICARE ==
--- NOTE | 2018-10-30 09:08 | REPMRS ---
Patient History The patient states she has not had a clinical breast exam in over a year. Patient is postmenopausal. Family history of unknown cancer at age 50 or over in maternal grandmother. Digital Mammo Screening Bilat: October 30, 2018 - Exam #: [id number] Bilateral CC and MLO view(s) were taken. Technologist: Danni Hensley Technologist Prior study comparison: February 14, 2012, digital woman screen mammo, performed at [facility]. February 29, 2004, bilateral screening mammogram, performed at [facility]. FINDINGS: There are scattered fibroglandular densities. There has been no change in the appearance of the mammogram from the prior studies. There is a mild amount of scattered fibroglandular density which is fairly symmetric. There is no interval development of dominant mass, architectural distortion, or clustered microcalcification suggestive of malignancy. 3-D tomosynthesis shows no additional findings. Assessment: BI-RADS/ACR category 1 mammogram. Negative Mammogram. Recommendation Routine screening mammogram of both breasts in 1 year (for women over age 40). This patient's Lifetime Breast Cancer RIsk is estimated at 5.8 %. This mammogram was interpreted with the aid of an FDA-approved computer-aided dectection system. Electronically Signed By: Phuc Sutherland MD 10/30/18 [id number]
== END ==
LOC: M RAD 06:43
PROVIDERS: ATTEND Family Medicine
DX: Z12.31 Encounter for screening mammogram for malignant neoplasm of breast (principal); Z78.0 Asymptomatic menopausal state; Z80.9 Family history of malignant neoplasm, unspecified

== ENCOUNTER → 2019-01-21 | Outpatient (REF) | payer BC, MEDICARE ==
[2019-01-21 16:58] LABS: BLOOD UREA NITROGEN 15 MG/DL (7-18); CARBON DIOXIDE LEVEL 30 MEQ/L (21-32); CHLORIDE LEVEL 106 MEQ/L (98-107); CREATININE FOR GFR 0.82 MG/DL (0.55-1.30); GLOMERULAR FILTRATION RATE > 60.0 (>45); GLUCOSE, FASTING 147 MG/DL (70-100); SODIUM LEVEL 141 MEQ/L (136-145)
[2019-01-21 18:39] LABS: HEMOGLOBIN A1c 6.6 %
== END ==
LOC: M SFHCCLAY 10:03
PROVIDERS: ATTEND Family Medicine
DX: E11.9 Type 2 diabetes mellitus without complications (principal)

== ENCOUNTER → 2019-05-25 | Outpatient (REF) | payer BC, MEDICARE ==
[2019-05-25 16:52] LABS: BLOOD UREA NITROGEN 15 MG/DL (7-18); CALCIUM LEVEL 9.5 MG/DL (8.8-10.2); CARBON DIOXIDE LEVEL 29 MEQ/L (21-32); CHLORIDE LEVEL 102 MEQ/L (98-107); CREATININE FOR GFR 0.81 MG/DL (0.55-1.30); GLOMERULAR FILTRATION RATE > 60.0 (>45); GLUCOSE, FASTING 140 MG/DL (70-100); POTASSIUM SERUM 4.4 MEQ/L (3.5-5.1); SODIUM LEVEL 138 MEQ/L (136-145)
[2019-05-25 17:08] LABS: HEMOGLOBIN A1c 6.6 %
== END ==
LOC: M SFHCCLAY 11:40
PROVIDERS: ATTEND Family Medicine
DX: E11.9 Type 2 diabetes mellitus without complications (principal)

== ENCOUNTER → 2019-09-25 | Outpatient (REF) | payer BC, MEDICARE ==
[2019-09-25 16:17] LABS: ALBUMIN 3.6 GM/DL (3.2-5.2); ALT/SGPT 27 U/L (12-78); BILIRUBIN,TOTAL 0.4 MG/DL (0.2-1.0); BLOOD UREA NITROGEN 17 MG/DL (7-18); CALCIUM LEVEL 9.3 MG/DL (8.8-10.2); CARBON DIOXIDE LEVEL 30 MEQ/L (21-32); CHLORIDE LEVEL 104 MEQ/L (98-107); CHOLESTEROL LEVEL 161 MG/DL (<200); CHOLESTEROL RISK RATIO 4.236 (<5); GLOMERULAR FILTRATION RATE > 60.0 (>45); GLUCOSE, FASTING 118 MG/DL (70-100); HDL CHOLESTEROL 38 MG/DL (>40); LDL CHOLESTEROL 44 MG/DL (<100); NON-HDL-C 123 MG/DL; POTASSIUM SERUM 4.9 MEQ/L (3.5-5.1); SODIUM LEVEL 140 MEQ/L (136-145); TOTAL PROTEIN 7.7 GM/DL (6.4-8.2); TRIGLYCERIDES LEVEL 395 MG/DL (<150)
[2019-09-25 16:27] LABS: TOTAL 25(OH) VITAMIN D 82.8 NG/ML (30.0-100.0)
[2019-09-25 17:37] LABS: HEMOGLOBIN A1c 6.8 %
== END ==
LOC: M SFHCCLAY 12:13
PROVIDERS: ATTEND Family Medicine
DX: E11.9 Type 2 diabetes mellitus without complications (principal); E55.9 Vitamin D deficiency, unspecified; E78.00 Pure hypercholesterolemia, unspecified

== ENCOUNTER → 2020-02-18 | Outpatient (REF) | payer BC, MEDICARE ==
[2020-02-18 16:45] LABS: HEMOGLOBIN A1c 6.3 %
== END ==
LOC: M SFHCCLAY 11:07
PROVIDERS: ATTEND Family Medicine
DX: E11.9 Type 2 diabetes mellitus without complications (principal)

== ENCOUNTER → 2020-06-30 | Outpatient (CLI) | payer BC, MEDICARE ==
--- NOTE | 2020-06-30 13:02 | REP ---
INDICATION: R09.89 BIBASILAR CRACKLES R06.02 CHRONIC SHORTNESS OF BREATH. COMPARISON: Comparison chest x-ray [address] findings August 21, 2016. TECHNIQUE: Three views presented... FINDINGS: There are coarse bibasilar interstitial fibrotic changes which are somewhat more prominent than on the 2013 prior study but not new. The heart is not enlarged. No focal infiltrate is seen. No pleural effusion is evident. There are mild degenerative changes in the thoracic spine and thoracic aorta. IMPRESSION: Coarse bibasilar interstitial fibrosis, somewhat more pronounced than on the 2013 prior study. No definite acute infiltrate.. <Electronically signed by Phuc Sutherland > 06/30/20 [id number]
== END ==
LOC: M CLY 12:26
PROVIDERS: ATTEND Family Medicine
DX: R09.89 Other specified symptoms and signs involving the circulatory and respiratory systems (principal); R06.02 Shortness of breath

== ENCOUNTER → 2020-06-30 | Outpatient (REF) | payer BC, MEDICARE ==
[2020-06-30 16:10] LABS: HEMATOCRIT 49.9 % (36.0-47.0); HEMOGLOBIN 15.4 g/dl (12.0-15.5); MEAN CORPUSCULAR HEMOGLOBIN 28.5 pg (27.0-33.0); MEAN CORPUSCULAR HGB CONC 30.9 g/dl (32.0-36.5); MEAN CORPUSCULAR VOLUME 92.2 fl (80.0-96.0); PLATELET COUNT, AUTOMATED 278 10^3/uL (150-450); RED BLOOD COUNT 5.41 10^6/uL (4.00-5.40); WHITE BLOOD COUNT 11.2 10^3/uL (4.0-10.0)
[2020-06-30 17:22] LABS: FREE T4 1.03 NG/DL (0.76-1.46); THYROID STIMULATING HORMONE 1.57 uIU/ML (0.358-3.740)
== END ==
LOC: M SFHCCLAY 12:13
PROVIDERS: ATTEND Family Medicine
DX: R00.0 Tachycardia, unspecified (principal); R09.89 Other specified symptoms and signs involving the circulatory and respiratory systems; R06.02 Shortness of breath

== ENCOUNTER → 2020-11-24 | Outpatient (REF) | payer BC, MEDICARE ==
[2020-11-24 12:15] LABS: BLOOD UREA NITROGEN 12 MG/DL (7-18); CARBON DIOXIDE LEVEL 32 MEQ/L (21-32); CHLORIDE LEVEL 104 MEQ/L (98-107); CHOLESTEROL LEVEL 161 MG/DL (<200); CHOLESTEROL RISK RATIO 4.025 (<5); CREATININE FOR GFR 0.76 MG/DL (0.55-1.30); GLOMERULAR FILTRATION RATE > 60.0 (>45); GLUCOSE, FASTING 131 MG/DL (70-100); HDL CHOLESTEROL 40 MG/DL (>40); LDL CHOLESTEROL 59 MG/DL (<100); NON-HDL-C 121 MG/DL; POTASSIUM SERUM 4.3 MEQ/L (3.5-5.1); SODIUM LEVEL 139 MEQ/L (136-145); TRIGLYCERIDES LEVEL 309 MG/DL (<150)
[2020-11-24 12:24] LABS: MALB URINE SIEMENS 9.2 MG/L; MAU/CREAT RATIO 7.2 MCG/MG (0.0-30.0)
[2020-11-24 12:31] LABS: HEMOGLOBIN A1c 6.6 %
[2020-11-24 12:49] LABS: TOTAL 25(OH) VITAMIN D 42.1 NG/ML (30.0-100.0)
== END ==
LOC: M SFHCCLAY 07:03
PROVIDERS: ATTEND Family Medicine
DX: E11.9 Type 2 diabetes mellitus without complications (principal); E78.00 Pure hypercholesterolemia, unspecified; E55.9 Vitamin D deficiency, unspecified

== ENCOUNTER → 2021-03-09 | Outpatient (CLI) | payer BC, MEDICARE | LOC: M WHC 13:43 | PROVIDERS: ATTEND Family Medicine | DX: Z12.31 Encounter for screening mammogram for malignant neoplasm of breast (principal); Z78.0 Asymptomatic menopausal state; Z80.8 Family history of malignant neoplasm of other organs or systems ==

== ENCOUNTER → 2021-05-01 | Outpatient (CLI) | payer BC, MEDICARE | LOC: M RAD 09:37 | PROVIDERS: ATTEND Physician Assistant | DX: Z48.812 Encounter for surgical aftercare following surgery on the circulatory system (principal); I65.23 Occlusion and stenosis of bilateral carotid arteries ==

== ENCOUNTER → 2021-05-25 | Outpatient (REF) | payer BC, MEDICARE ==
[2021-05-25 12:11] LABS: HEMOGLOBIN A1c 6.4 %
[2021-05-25 12:14] LABS: BLOOD UREA NITROGEN 15 MG/DL (7-18); CALCIUM LEVEL 9.4 MG/DL (8.8-10.2); CARBON DIOXIDE LEVEL 31 MEQ/L (21-32); CHLORIDE LEVEL 102 MEQ/L (98-107); GLOMERULAR FILTRATION RATE > 60.0 (>45); GLUCOSE, FASTING 117 MG/DL (70-100); POTASSIUM SERUM 4.9 MEQ/L (3.5-5.1); SODIUM LEVEL 137 MEQ/L (136-145)
== END ==
LOC: M SFHCCLAY 07:47
PROVIDERS: ATTEND Family Medicine
DX: E11.9 Type 2 diabetes mellitus without complications (principal)

== ENCOUNTER → 2021-11-27 | Outpatient (REF) | payer MEDICARE, BC ==
[2021-11-27 15:55] LABS: BLOOD UREA NITROGEN 12 MG/DL (7-18); CALCIUM LEVEL 9.7 MG/DL (8.8-10.2); CARBON DIOXIDE LEVEL 29 MEQ/L (21-32); CHLORIDE LEVEL 106 MEQ/L (98-107); CHOLESTEROL LEVEL 137 MG/DL (<200); CHOLESTEROL RISK RATIO 3.702 (<5); CREATININE FOR GFR 0.82 MG/DL (0.55-1.30); GLOMERULAR FILTRATION RATE > 60.0 (>45); GLUCOSE, FASTING 139 MG/DL (70-100); HDL CHOLESTEROL 37 MG/DL (>40); LDL CHOLESTEROL 49 MG/DL (<100); NON-HDL-C 100 MG/DL; POTASSIUM SERUM 4.8 MEQ/L (3.5-5.1); SODIUM LEVEL 139 MEQ/L (136-145); TOTAL 25(OH) VITAMIN D 41.4 NG/ML (30.0-100.0); TRIGLYCERIDES LEVEL 254 MG/DL (<150)
[2021-11-28 01:01] LABS: HEMOGLOBIN A1c 6.5 %
== END ==
LOC: M SFHCCLAY 07:51
PROVIDERS: ATTEND Family Medicine
DX: E11.9 Type 2 diabetes mellitus without complications (principal); E78.00 Pure hypercholesterolemia, unspecified; E55.9 Vitamin D deficiency, unspecified; Z79.899 Other long term (current) drug therapy

== ENCOUNTER → 2022-05-31 | Outpatient (REF) | payer MEDICARE, BC ==
[~2022-05-31] MED LIST changes: +CLOP75TA99 PO; -PLAV1TAB2 PO
[2022-05-31 12:19] LABS: BLOOD UREA NITROGEN 15 MG/DL (9-23); CALCIUM LEVEL 9.6 MG/DL (8.3-10.6); CARBON DIOXIDE LEVEL 30 MMOL/L (20-31); CHLORIDE LEVEL 103 MMOL/L (98-107); CREATININE FOR GFR 0.89 MG/DL (0.55-1.30); GLOMERULAR FILTRATION RATE > 60.0 (>45); GLUCOSE, FASTING 135 MG/DL (74-106); POTASSIUM SERUM 5.2 MMOL/L (3.5-5.1); SODIUM LEVEL 138 MMOL/L (136-145)
[2022-05-31 12:25] LABS: HEMOGLOBIN A1c 6.3 % (4.0-6.0)
== END ==
LOC: M SFHCCLAY 08:29
PROVIDERS: ATTEND Nurse Practitioner Family
DX: E11.9 Type 2 diabetes mellitus without complications (principal); I11.9 Hypertensive heart disease without heart failure

== ENCOUNTER → 2022-06-01 | Outpatient (REF) | payer MEDICARE, BC | LOC: M SFHCCLAY 11:39 | PROVIDERS: ATTEND Nurse Practitioner Family | DX: E87.5 Hyperkalemia (principal) ==

== ENCOUNTER → 2022-06-05 | Outpatient (CLI) | payer MEDICARE, BC | LOC: M RAD 12:48 | PROVIDERS: ATTEND Surgery Vascular Surgery | DX: I65.23 Occlusion and stenosis of bilateral carotid arteries (principal) ==

== ENCOUNTER → 2022-08-30 | Outpatient (CLI) | payer MEDICARE, BC ==
[~2022-08-30] MED LIST changes: +ISOVUE-370 76% 100ML VIAL As Ordered ONE
[2022-08-30 13:57] LABS: ALBUMIN 3.4 G/DL (3.2-5.2); ALKALINE PHOSPHATASE 62 U/L (46-116); ALT/SGPT 20 U/L (7.0-40); AST/SGOT 18 U/L (<34); BILIRUBIN,TOTAL 0.4 MG/DL (0.3-1.2); BLOOD UREA NITROGEN 14 MG/DL (9-23); CALCIUM LEVEL 9.4 MG/DL (8.3-10.6); CARBON DIOXIDE LEVEL 31 MMOL/L (20-31); CHLORIDE LEVEL 104 MMOL/L (98-107); CHOLESTEROL LEVEL 168 MG/DL (<200); CHOLESTEROL RISK RATIO 4.38 (<5); CREATININE FOR GFR 0.82 MG/DL (0.55-1.30); GLOMERULAR FILTRATION RATE > 60.0 (>45); GLUCOSE, FASTING 109 MG/DL (74-106); HDL CHOLESTEROL 38.3 MG/DL (>40); LDL CHOLESTEROL 71.3 MG/DL (<100); NON-HDL-C 129.7 MG/DL; POTASSIUM SERUM 4.8 MMOL/L (3.5-5.1); SODIUM LEVEL 137 MMOL/L (136-145); TOTAL PROTEIN 7.2 G/DL (5.7-8.2); TRIGLYCERIDES LEVEL 292 MG/DL (<150)
[2022-08-30 16:21] LABS: HEMOGLOBIN A1c 6.5 % (4.0-6.0)
== END ==
LOC: M RAD 12:49 → M LAB 12:49
PROVIDERS: ATTEND Nurse Practitioner Family
DX: R91.8 Other nonspecific abnormal finding of lung field (principal); R59.1 Generalized enlarged lymph nodes; E87.5 Hyperkalemia; E11.9 Type 2 diabetes mellitus without complications; E78.00 Pure hypercholesterolemia, unspecified; R06.02 Shortness of breath
CPT/HCPCS: 36415; 71260; 80053; 80061; 83036; Q9967

== ENCOUNTER → 2022-08-30 | Outpatient (REF) | payer MEDICARE, BC ==
[~2022-08-30] MED LIST changes: -ISOVUE-370 76% 100ML VIAL As Ordered ONE
== END ==
LOC: M SFHCCLAY 11:33
PROVIDERS: ATTEND Nurse Practitioner Family
DX: E87.5 Hyperkalemia (principal); E11.9 Type 2 diabetes mellitus without complications; E78.00 Pure hypercholesterolemia, unspecified

== ENCOUNTER → 2022-09-05 | Outpatient (REF) | payer MEDICARE, BC ==
[2022-09-05 12:11] LABS: HEMATOCRIT 49.7 % (36.0-47.0); HEMOGLOBIN 15.4 g/dl (12.0-15.5); MEAN CORPUSCULAR HEMOGLOBIN 28.6 pg (27.0-33.0); MEAN CORPUSCULAR VOLUME 92.4 fl (80.0-96.0); PLATELET COUNT, AUTOMATED 292 10^3/uL (150-450); RED BLOOD COUNT 5.38 10^6/uL (4.00-5.40)
[2022-09-05 12:22] LABS: ERYTHROCYTE SEDIMENTATION RATE 57 mm/hr (0-30)
[2022-09-05 12:38] LABS: C REACTIVE PROTEIN QUANTITATIV < 0.40 MG/DL (<1.0)
[2022-09-05 12:39] LABS: FREE T4 0.88 NG/DL (0.89-1.76); RHEUMATOID FACTOR QUANT 5.5 IU/ML (<14); THYROID STIMULATING HORMONE 4.799 uIU/ML (0.55-4.78)
[2022-09-10 19:07] LABS: ALPHA 1 ANTITRYPSIN 117 mg/dL (101-187); CYCLIC CITRULLINATED PEPTIDE 6 units (0-19)
== END ==
LOC: M SFHCCLAY 08:06
PROVIDERS: ATTEND Nurse Practitioner Family
DX: R93.89 Abnormal findings on diagnostic imaging of other specified body structures (principal); R00.0 Tachycardia, unspecified; R06.02 Shortness of breath

== ENCOUNTER → 2022-10-10 | Outpatient (CLI) | payer MEDICARE, BC ==
[2022-10-10 12:12] LABS: ALBUMIN 3.3 G/DL (3.2-5.2); BILIRUBIN,DIRECT 0.2 MG/DL (<0.4); BILIRUBIN,TOTAL 0.5 MG/DL (0.3-1.2)
== END ==
LOC: M LAB 10:35
PROVIDERS: ATTEND Internal Medicine Cardiovascular Disease
DX: R06.02 Shortness of breath (principal); I63.232 Cerebral infarction due to unspecified occlusion or stenosis of left carotid arteries

== ENCOUNTER → 2022-10-10 | Outpatient (CLI) | payer MEDICARE, BC ==
[2022-10-10 11:59] LABS: THYROID STIMULATING HORMONE 2.46 uIU/ML (0.55-4.78)
[2022-10-10 12:00] LABS: FREE T4 1.09 NG/DL (0.89-1.76)
== END ==
LOC: M LAB 10:40
PROVIDERS: ATTEND Nurse Practitioner Family
DX: R79.89 Other specified abnormal findings of blood chemistry (principal); Z79.899 Other long term (current) drug therapy

== ENCOUNTER → 2022-10-10 | Outpatient (CLI) | payer MEDICARE, BC ==
[2022-10-10 11:43] LABS: BASO # 0.1 10^3/uL (0.0-0.2); BASO % 0.6 % (0.0-1.0); EOS # 0.3 10^3/uL (0.0-0.5); EOS % 3.3 % (0.0-3.0); HEMATOCRIT 48.2 % (36.0-47.0); HEMOGLOBIN 15.2 g/dl (12.0-15.5); LYMPH % 36.1 % (24.0-44.0); MEAN CORPUSCULAR HEMOGLOBIN 28.5 pg (27.0-33.0); MEAN CORPUSCULAR HGB CONC 31.5 g/dl (32.0-36.5); MEAN CORPUSCULAR VOLUME 90.4 fl (80.0-96.0); MONO # 0.5 10^3/uL (0.0-0.8); MONO % 5.4 % (2.0-8.0); NEUTROPHILS # 4.5 10^3/uL (1.5-8.5); NEUTROPHILS % 54.2 % (36.0-66.0); PLATELET COUNT, AUTOMATED 274 10^3/uL (150-450); RED BLOOD COUNT 5.33 10^6/uL (4.00-5.40); WHITE BLOOD COUNT 8.3 10^3/uL (4.0-10.0)
[2022-10-10 11:54] LABS: ERYTHROCYTE SEDIMENTATION RATE 55 mm/hr (0-30)
[2022-10-10 12:12] LABS: ALBUMIN 3.3 G/DL (3.2-5.2); ALKALINE PHOSPHATASE 55 U/L (46-116); ALT/SGPT 14 U/L (7.0-40); AST/SGOT 28 U/L (<34); BILIRUBIN,DIRECT 0.2 MG/DL (<0.4); BILIRUBIN,TOTAL 0.5 MG/DL (0.3-1.2); C REACTIVE PROTEIN QUANTITATIV < 0.40 MG/DL (<1.0); CREATININE FOR GFR 0.79 MG/DL (0.55-1.30); GLOMERULAR FILTRATION RATE > 60.0 (>45); TOTAL PROTEIN 7.2 G/DL (5.7-8.2)
[2022-10-10 12:14] LABS: RHEUMATOID FACTOR QUANT 6.8 IU/ML (<14)
[2022-10-15 15:07] LABS: ANCA-ATYPICAL <1:20 titer (Neg:<1:20); ANGIOTENSIN 1 CONVERTING ENZYM 31 U/L (14-82); ANTI DS-DNA AB Negative (Negative); ANTINUCLEAR ANTIBODIES DIRECT Negative (Negative); ASPERGILLUS FLAVUS ABY Negative (Neg:<1:1); ASPERGILLUS FUMIGATUS ABY Negative (Neg:<1:1); ASPERGILLUS NIGER ABY Negative (Neg:<1:1); BLASTOMYCES ANTIBODY LEVEL Negative (Neg:<1:1); CRYPTOCOCCUS ANTIGEN SER Negative (Negative); CYCLIC CITRULLINATED PEPTIDE 4 units (0-19); CYTOPLASMIC NEUTROP AB ANCA-C <1:20 titer (Neg:<1:20); PERINUCLEAR AB ANCA-P <1:20 titer (Neg:<1:20); RNP ANTIBODIES <0.2 AI (0.0-0.9); SJOGREN'S ANTI SS-A 0.3 AI (0.0-0.9); SJOGREN'S ANTI SS-B <0.2 AI (0.0-0.9); SMITH ANTIBODIES <0.2 AI (0.0-0.9)
[2022-10-19 14:10] LABS: ASPERGILLUS FUMIGATUS AB Negative (Negative); AUREOBASIDIUM PULLULANS Negative (Negative); MICROPOLYSPORA FAENI AB Negative (Negative); PIGEON SERUM AB Negative (Negative); THERMOACTINOMYCES SACCHARI Negative (Negative); THERMOACTINOMYCES VULGARIS Negative (Negative)
== END ==
LOC: M LAB 10:37
PROVIDERS: ATTEND Internal Medicine Pulmonary Disease
DX: R91.8 Other nonspecific abnormal finding of lung field (principal); R06.02 Shortness of breath; I63.232 Cerebral infarction due to unspecified occlusion or stenosis of left carotid arteries; R79.89 Other specified abnormal findings of blood chemistry; Z79.899 Other long term (current) drug therapy